=== PATIENT | female | born 1995 ===

== ENCOUNTER 2024-11-15 07:00 | Inpatient (IN) | payer OTHER ==
[~2024-11-15] VITALS: Ht 160 cm; Wt 72.1 kg
[2024-11-15 07:46] VITALS: BP 111/74
[2024-11-15] MEDS ORDERED: METFORMIN HCL1000 M2 (07:46)
[2024-11-15 07:52] VITALS: BP 113/80
[2024-11-15 08:00] LABS: HEMATOCRIT 31.8 % (36.0-45.00); HEMOGLOBIN 10.2 g/dL (12.0-15.00); MEAN CELL VOLUME 78.2 fL (80.00-100.00); PLATELET COUNT 331 K/uL (150-450); RED BLOOD COUNT 4.07 M/uL (4.00-6.00); RED CELL DISTRIBUTION WIDTH 16.5 % (11.5-14.5)
[2024-11-15 08:08] LABS: PH,URINE 5.5 (5.0-8.0); URINE APPEARANCE Clear; URINE BILIRRUBIN Negative (NEGATIVE); URINE BLOOD Large; URINE COLOR Yellow; URINE GLUCOSE Negative (NEGATIVE); URINE KETONE Negative (NEGATIVE); URINE LEUKOCYTE Small; URINE NITRATE Negative; URINE PROTEIN Trace (NEGATIVE); URINE UROBILINOGEN 0.2 E.U./dl
[2024-11-15 08:11] LABS: URINE BACTERIA 56.3 uL (0.0-1933); URINE EPITHELIAL CELLS 20.5 uL (0.0-38.8); URINE RBC 8085.3 uL (0.0-20.8); URINE WBC 61.2 uL (0.0-23.2)
[2024-11-15 08:50] LABS: INR 0.97; PARTIAL THROMBOPLASTIN TIME 29.7 SECONDS (22.0-34.0); PROTHROMBIN TIME 10.6 SECONDS (9.0-11.5)
[2024-11-15 08:57] LABS: ALBUMIN 3.7 gm/dL (3.4-5.0); BILIRUBIN TOTAL 0.36 mg/dL (0.3-1.2); CALCIUM 9.1 mg/dL (8.5-10.1); CREATININE SERUM 0.66 mg/dL (0.55-1.02); GFR 104.46; GLOBULINA 4.3 G/DL (2.4-3.5); POTASSIUM 4.5 mEq/L (3.5-5.1)
[2024-11-15 10:04] LABS: RH POSITIVE
[2024-11-25] MEDS ORDERED: POVIDONE-IODINE 118 ML BOTT TOP ONE (10:17)
[2024-11-25] MEDS ORDERED: CEFAZOLIN SODIUM 1,000 MG VIAL IV ONE (11:30)
[2024-11-25] MEDS ORDERED: RINGERS SOLUTION,LACTATED 1,000 ML IV SCH (12:45)
[2024-11-25] MEDS ORDERED: MORPHINE SULFATE 4 MG/ML VIAL IV ONE ×2 (13:10→13:40)
[2024-11-25] MEDS ORDERED: MEPERIDINE HCL/PF 25 MG/ML VIAL IM SCH (14:00)
[2024-11-25] MEDS ORDERED: PROMETHAZINE HCL 50 MG/ML AMPUL IM SCH (14:00)
[2024-11-25 14:13] VITALS: BP 111/74
[2024-11-25] MEDS ORDERED: DEXTROSE 5 % AND 0.9 % NACL 1,000 ML IV SCH (14:45)
[2024-11-25 16:02] VITALS: BP 105/69
[2024-11-25 20:47] VITALS: BP 97/65
[2024-11-25] MEDS ORDERED: ONDANSETRON HCL 2 MG/ML VIAL IV SCH (21:00)
[2024-11-25] MEDS ORDERED: CEFAZOLIN SODIUM 1,000 MG VIAL IV SCH (21:00)
[2024-11-26] VITALS: BP 101/69
[2024-11-26] MEDS ORDERED: OxyCODONE HCL/APAP UD (PERCOCET) PO SCH (08:00)
[2024-11-26 08:25] VITALS: BP 103/64
[2024-11-26] MEDS ORDERED: DOCUSATE CALCIUM 240 MG CAPSULE PO SCH (09:00)
[2024-11-26] MEDS ORDERED: DOCUSATE SODIUM 100MG CAP PO SCH (09:00)
[2024-11-26 15:00] VITALS: BP 100/64
[2024-11-26] MEDS ORDERED: MetFORMIN HCL 1000 MG TABLET PO SCH (17:00)
[2024-11-27] VITALS: BP 92/60
[2024-11-27 08:05] VITALS: BP 98/67
== END 2024-11-27 12:16 | disposition home or self-care (01) | DRG 743 ==
LOC: SURH 11-23 07:00 → O/R 11-25 04:46 → OB/GYN 11-25 14:26
PROVIDERS: ADMIT Obstetrics & Gynecology; ATTEND Obstetrics & Gynecology
PROC: 0UB90ZZ Excision of Uterus, Open Approach (ICD-10-PCS; principal; 2024-11-25 13:30)
DX: D25.9 Leiomyoma of uterus, unspecified (principal)

== ENCOUNTER 2024-11-21 16:13 | Outpatient (CLI) | payer OTHER ==
[~2024-11-21 16:13] MED LIST: METFORMIN HCL1000 M2
[2024-11-21 16:43] LABS: HEMATOCRIT 32.4 % (36.0-45.00); HEMOGLOBIN 10.4 g/dL (12.0-15.00); MEAN CELL VOLUME 78.8 fL (80.00-100.00); MEAN CORPUSCULAR HEMOGLOBIN 25.2 pg (27.00-32.0); PLATELET COUNT 332 K/uL (150-450); RED BLOOD COUNT 4.12 M/uL (4.00-6.00)
== END 2024-11-21 16:23 | disposition home or self-care (01) ==
LOC: LAB 16:13
PROVIDERS: ATTEND Internal Medicine
DX: D64.9 Anemia, unspecified (principal)